=== PATIENT | female | born 1965 | race Caucasian/White ===

== ENCOUNTER → 2021-04-02 | Day surgery (SDC) | payer OTHER ==
[~2021-04-02] VITALS: Ht 170.2 cm; Wt 133.5 kg
[~2021-04-02] MED LIST: BUSPIRONE HCL15 MG PO; HCTZ25 MG PO; IBUPROFEN800 M1 PO; NORCO 5-325 TA1 EACH PO; PERCOCET 5-3251 EACH PO; PRINIVIL20 MG PO; PROZAC20 MG PO; TOPROL XL 50 MG50 MG PO
[2021-04-02 09:37] LABS: HCG (URINE) SCREEN NEGATIVE (NEGATIVE)
[2021-04-02 10:47] LABS: CREATININE 0.47 mg/dL (0.51-0.95); POTASSIUM 4.4 mmol/L (3.5-5.1)
== END | disposition home or self-care (01) ==
LOC: FAS 08:44
PROVIDERS: Anesthesiology; Obstetrics & Gynecology
DX: D28.0 Benign neoplasm of vulva (principal); N90.89 Other specified noninflammatory disorders of vulva and perineum; F41.9 Anxiety disorder, unspecified; F32.9 Major depressive disorder, single episode, unspecified; I10 Essential (primary) hypertension; E78.5 Hyperlipidemia, unspecified; E66.9 Obesity, unspecified; Z98.51 Tubal ligation status; Z68.42 Body mass index [BMI] 45.0-49.9, adult; R00.1 Bradycardia, unspecified
CPT/HCPCS: 36415; 80048; 84703; 93005; J2250; J2405; J2704; J3010; J7120